=== PATIENT | female | born 1995 | race Caucasian/White ===

== ENCOUNTER 2018-07-29 02:28 | Emergency (ER) | payer OTHER, SELFPAY ==
[2018-07-29 02:29] VITALS: BP 149/95; PULSE 62; RESP 17; TEMP 36.5; O2SAT 100; BMI 33.6
--- NOTE | 2018-07-29 03:13 | ED.DEP ---
ED Disposition - Plan for ED Patient: Instructions: ED Sciatica Prescriptions: predniSONE tablet 60 mg PO DAILY #15 tab Referrals: Care Physician,No Primary [Primary Care Provider] -
[2018-07-29 03:18] VITALS: BP 140/76; PULSE 71; RESP 17; O2SAT 98
--- NOTE | 2018-07-29 06:55 | ED.VISSUMM ---
- ER Visit Summary Date of Service: 07/29/18 Chief Complaint: Numbness right toes and leg History of Present Illness: The patient is a 22 F who presents with numbness in her right leg. Initially began in her second and third toes after working out. She was using an elliptical. She states that over the past 3 days she now have some numbness in the whole right leg. She denies any pain. No weakness. She is able to ambulate without any difficulty. No back pain. No history of prior similar symptoms. Physical Examination: Afebrile vitals unremarkable except blood pressure 149/95 Moist mucous membranes Heart regular rate Lungs clear Patient sensation is intact to light touch of the right lower extremity although she states this is decreased from usual. She is able to tell I am touching her. She has normal strength with 5 out of 5 dorsiflexion, plantarflexion, extensor hallucis longus skin is warm and dry she has an easily palpable dorsalis pedis pulse there is no edema there is no tenderness of the calf or leg negative straight leg raise Back nontender to palpation Test Results: Not indicated Emergency Department Course and Treatment: I suspect this is related to lumbar radiculopathy. It began after exercising with elliptical and she also notes that she was doing hip abductions. She was advised to hold on any hip or lower extremity exercises until symptoms improve. We did place her on a prednisone burst. She was given clear instructions that if symptoms do not improve or she develops any new or worsening symptoms she needs to seek reevaluation she needs to return immediately to the emergency department if she develops any weakness. She is agreeable to this plan. All questions answered bedside. Patient discharged. Treatment Plan: [] Disposition: Discharge Impression: Lumbar radiculopathy This note was generated with [facility] [employer] [facility] dictation software. It may contain incorrect words, spelling, and punctuation that were not noted in review of the chart prior to signing ED Disposition - Plan for ED Patient: Disposition: Home or Assisted Living Instructions: ED Sciatica Prescriptions: predniSONE tablet 60 mg PO DAILY #15 tab Referrals: Care Physician,No Primary [Primary Care Provider] -
== END 2018-07-29 03:28 | disposition home or self-care (01) ==
PROVIDERS: Emergency Provider Emergency Medicine
DX: M54.16 Radiculopathy, lumbar region (principal); J45.909 Unspecified asthma, uncomplicated
CPT/HCPCS: 99282

== ENCOUNTER → 2019-07-20 15:15 | Outpatient (CLI) | payer OTHER, SELFPAY ==
[2019-07-20 16:12] LABS: Absolute Lymphocyte Count 2.52 X10^3/uL (0.83-4.51); Absolute Neutrophil Count 4.5 X10^3/uL (2.0-7.7); Basophil# 0.03 X10^3/uL; Basophil% 0.4 % (0-1); Eosinophil# 0.12 X10^3/uL; Eosinophils% 1.5 % (0-5); Hematocrit 39.5 % (37-47); Lymphocyte # 2.52 X10^3/ul (4.0); Lymphocyte % 32.3 % (19-41); Mean Corp Hgb Conc 32.9 g/dL (32-36); Mean Corpuscular Hgb 27.7 pg (27.0-32.0); Mean Platelet Vol. 8.7 fl (6.2-12.0); Monocyte# 0.57 X10^3/uL; Monocyte% 7.3 % (0-10); NRBC Flagged by Analyzer 0 % (0-5); Neutrophil # 4.53 X10^3/uL (2.7-7.7); Neutrophil % 58.2 % (47-70); Platelet Count 374 K/mm3 (150-450); RBC Distribution Width CV 14.1 % (11.6-14.6); RBC Distribution Width SD 43.8 fl (35.1-43.9); White Blood Count 7.8 K/mm3 (4.4-11.0)
[2019-07-20 16:37] LABS: Vitamin D,25 Hydroxy 24.5 ng/mL (29.95-100.01)
[2019-07-24 09:07] LABS: Almond 0.16 kU/L (Class 0/I); Brazil Nut 0.14 kU/L (Class 0/I); Cashew <0.10 kU/L (Class 0); Hazelnut/Filbert 0.25 kU/L (Class 0/I); Pecan <0.10 kU/L (Class 0); SESAME SEED 0.37 kU/L (Class I)
[2019-07-25 11:37] LABS: Peanut 0.44 kU/L (Class I); Walnut, (Food) 0.12 kU/L (Class 0/I)
[2019-07-25 20:32] LABS: C1 EST Inhibitor, Functional 73 (.)
== END ==
PROVIDERS: Referring Provider Specialist; Visit Provider Specialist
DX: J30.9 Allergic rhinitis, unspecified (principal); J45.909 Unspecified asthma, uncomplicated; R06.00 Dyspnea, unspecified; J32.9 Chronic sinusitis, unspecified; L50.1 Idiopathic urticaria; T78.3XXD Angioneurotic edema, subsequent encounter; T78.09XD Anaphylactic reaction due to other food products, subsequent encounter; Z91.038 Other insect allergy status; E55.9 Vitamin D deficiency, unspecified; E07.9 Disorder of thyroid, unspecified
CPT/HCPCS: 36415; 82306; 85025; 86003; 86160; 86161